=== PATIENT | female | born 1975 | race Caucasian/White ===

== ENCOUNTER 2024-03-01 22:52 | Emergency (ER) | payer BC ==
[2024-03-01 23:00] VITALS: RESP 20; TEMP 97.3
--- NOTE | 2024-03-01 23:22 | ERPHSYRPT ---
- History of Present Illness Source: patient Exam Limitations: no limitations Patient Subjective Stated Complaint: I woke up about 1.5-2 weeks ago with pain and it's just getting worse by the day. I went to [facility] today and she gave me a shot (steroid) and the flexeril, but it hasn't helped at all. Triage Nursing Assessment: Pt brought back to ER room 9 in wheelchair by her mother. Pt c/o back pain and left leg pain. Pt states, "I woke up about a week and a half ago with this pain and it has gotten increasingly worse every single day". Pt has the pain from her low back all the way down her left leg. Pt is moaning, grasping site and has facial grimmacing from the pain. Pt denies any numbness or tingling. Pt was seen in [facility] today and dx with sciatica and given flexeril po and a steroid shot which pt states, "has not helped at all". Pt rates pain a 10. Physician History: Patient has low back pain which radiates down her left leg. She says it feels like stinging. It hurts to stand on it or putting weight on it. She has radicular symptoms that radiate down the back of the leg and into the dorsum of the left foot. The right leg is not involved. She does not have a bowel or bladder dysfunction and no saddle paresthesias. She does not have any weakness. She saw her primary care doctor and was diagnosed with sciatica. I think that this is an accurate diagnosis. She was given Flexeril and a steroid shot and is requesting something for pain. She says that those are not helping. The symptoms been going on for about a week and a half. Allergies/Adverse Reactions: methylprednisolone Adverse Reaction (Mild, Verified 03/01/24 23:14) Hives Home Medications: Cyclobenzaprine HCl 5 mg PO TID PRN 03/01/24 [History] Hx Tetanus, Diphtheria Vaccination/Date Given: Yes Hx Influenza Vaccination/Date Given: No Hx Pneumococcal Vaccination/Date Given: No Travel Risk - International Travel Have you traveled outside of the country in past 3 weeks: No - Emerging Infectious Disease Are you exhibiting symptoms associated with any current EIDs: No - Review of Systems Ears, Nose, & Throat: No Symptoms Respiratory: No Symptoms Cardiac: No Symptoms Abdominal/Gastrointestinal: No Symptoms Genitourinary Symptoms: No Symptoms All Other Systems: Reviewed and Negative - Past Medical History Pertinent Past Medical History: No Other Medical History: bicornel septate uterus, 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 - Past Surgical History Past Surgical History: Yes Gastrointestinal: Appendectomy Female Surgical History: Dilation & Curettage, Section, Tubal Ligation - Female History Hx Last Menstrual Period: 02/23/24 Hx Now: No - Social History Smoking Status: Never smoker Exposure to second hand smoke: Yes Drug Use: none Patient Lives Alone: No - Social Determinants of Health Will the patient participate in the screening: Yes Do you worry about a steady place to live?: No Do you have any problems with any of the following?: No known problems In the past 12 months,have you had to go without utilities?: No Transportation Issues: No Has anyone in your support network made you feel unsafe?: No Have you or anyone in your house had to go without enough: No - Nursing Vital Signs Nursing Vital Signs: Initial Vital Signs Temperature 97.3 F 03/01/24 22:57 Pulse Rate 71 03/01/24 22:57 Respiratory Rate 20 03/01/24 22:57 Blood Pressure 129/82 03/01/24 22:57 O2 Sat by Pulse Oximetry 100 03/01/24 22:57 Pain Scale Pain Intensity [Left Thigh] 10 Pain Intensity 10 - Physical Exam General Appearance: no apparent distress Respiratory Exam: normal breath sounds Cardiovascular Exam: regular rate/rhythm Back Exam: other (Back exam was limited due to pain.) Extremity Exam: normal inspection, normal range of motion, pelvis stable Neurologic Exam: alert, oriented x 3, cooperative, wicker worker II-XII nml as tested, normal mood/affect, nml cerebellar function Skin Exam: normal color, warm, dry SpO2: 100 - Course Nursing assessment & vital signs reviewed: Yes - Progress Progress: unchanged Progress Note: Patient was stable throughout stay. I gave her some Nubain here IM. I would to send her home with [place]. She already has Flexeril. I would add a short course of prednisone as well. On the differential was sciatica, herniated lumbar disc, lumbar muscle strain I think it sciatica. She has been diagnosed with that earlier and is being treated currently. I told her to get a follow-up with her primary care doctor as she may need physical therapy or referral 03/01/24 23:21 Medical Desision Making - Independent Historian Additional History obtained from: Mother - Risk of complications Minimal Risk: Minimal risk of morbidity - Departure Departure Disposition: Home Clinical Impression: Sciatica Condition: Stable Critical Care Time: No Referrals: GWENDOLYN DOHERTY MD [Primary Care Provider] - Follow up/PCP as directed Instructions: Sciatica (DC)
[2024-03-01] MEDS ORDERED: Nubain 10 MG/ML ONE (23:26)
[2024-03-01] MEDS: Nubain 10 MG/ML IM ONE (23:30)
[2024-03-02] MEDS ORDERED: Hydromorphone 1 mg/ml Injection ONE (00:06)
[2024-03-02 00:08] VITALS: PULSE 58
[2024-03-02] MEDS: Hydromorphone 1 mg/ml Injection IM ONE (00:15)
[2024-03-02 00:20] VITALS: O2SAT 93
[2024-03-02 00:51] VITALS: BP 105/65
== END 2024-03-02 00:50 | disposition home or self-care (01) ==
LOC: ED 22:52
DX: M54.42 Lumbago with sciatica, left side (principal); M79.605 Pain in left leg
CPT/HCPCS: 96372; 99283; J1171; J2300

== ENCOUNTER 2024-03-04 10:39 | Emergency (ER) | payer BC ==
[2024-03-04 11:55] VITALS: TEMP 97
[2024-03-04 12:21] LABS: Appearance Cloudy (Clear); Bacteria Few /HPF (None Seen); Bilirubin Negative (Negative); Blood Negative (Negative); Epithelial Cells Few /HPF (None Seen); Glucose, Urine Negative (Negative); Hyaline Casts NONE SEEN /LPF (0-2); Ketones Trace (Negative); Leukocyte Esterase Negative (Negative); Nitrite Negative (Negative); Ph 5.5 (4.6-8.0); Protein,Urine Dip Trace (Negative); RBC 0-2 /HPF (0-5); Specific Gravity >=1.030 (1.005-1.030); WBC 0-2 /HPF (0-5)
[2024-03-04] MEDS ORDERED: MORPHINE SULFATE 4 MG INJ ONE (12:39)
--- NOTE | 2024-03-04 12:39 | ERPHSYRPT ---
- History of Present Illness Time Seen by Provider: 03/04/24 10:45 Source: patient Exam Limitations: no limitations Patient Subjective Stated Complaint: "I was here a couple days ago and I can't stand this pain. I can't even walk now and I have small children at home to care for. The pain is in my left hip and goes down my leg and it hurts to pee. I think I'm dehydrated too." Triage Nursing Assessment: Pt presents to ER in wheelchair complaining of lower back pain x 2 weeks that has progressively worsened. Pain is primarily located in the left groin today and radiates down left leg. Pt denies injury. has had difficulty urinating and blood in her urine. Pt is alert and oriented x 3. Skin pink, warm, and dry. Appears anxious and in pain. has had some nausea as well. Pt was seen in ER a couple days ago and sent home w/ Rx [place], Prednisone, and Cyclobenzaprine. meds are helping minimally. Also has been taking tylenol and motrin at home. Last dose approx 2 hours [employer]. is unable to ambulate without walker due to the pain. Physician History: 48-year-old female presented in the ER with 2 days history of left lower back pain with radiation to the left lower extremity moderate to severe sharp shooting with some numbness left anterior lateral thigh area. Pain is aggravated with minimal movements and is unable to have weightbearing. Patient was seen at [facility] and later this ER, got symptomatic treatment with no significant relief. Denies any loss of bowel or bladder control or saddle anesthesia. Denies any fall or trauma. No previous history of back pain. Patient does report it hurts to urinate but no incontinence/retention. Allergies/Adverse Reactions: azithromycin [From Zithromax Z-John] Adverse Reaction (Mild, Verified 03/04/24 11:55) Hives methylprednisolone Adverse Reaction (Mild, Verified 03/04/24 11:55) Hives Home Medications: Cyclobenzaprine HCl 5 mg PO TID PRN 03/01/24 [History] Hx Tetanus, Diphtheria Vaccination/Date Given: Yes Hx Influenza Vaccination/Date Given: No Hx Pneumococcal Vaccination/Date Given: No Immunizations Up to Date: No Travel Risk - International Travel Have you traveled outside of the country in past 3 weeks: No - Emerging Infectious Disease Are you exhibiting symptoms associated with any current EIDs: No - Review of Systems Constitutional: No Symptoms Eyes: No Symptoms Ears, Nose, & Throat: No Symptoms Respiratory: No Symptoms Cardiac: No Symptoms Abdominal/Gastrointestinal: No Symptoms Genitourinary Symptoms: Dysuria Musculoskeletal: Back Pain Skin: No Symptoms Neurological: No Symptoms Hematologic/Lymphatic: No Symptoms - Past Medical History Pertinent Past Medical History: No Other Medical History: bicornel septate uterus, 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 - Past Surgical History Past Surgical History: Yes Gastrointestinal: Appendectomy Female Surgical History: Dilation & Curettage, Section, Tubal Ligation - Female History Hx Last Menstrual Period: 02/14/24 Hx Now: No - Social History Smoking Status: Never smoker Exposure to second hand smoke: No Drug Use: none Patient Lives Alone: No - Social Determinants of Health Will the patient participate in the screening: Yes Do you worry about a steady place to live?: No Do you have any problems with any of the following?: No known problems In the past 12 months,have you had to go without utilities?: No Transportation Issues: No Has anyone in your support network made you feel unsafe?: No Have you or anyone in your house had to go without enough: No - Nursing Vital Signs Nursing Vital Signs: Initial Vital Signs Temperature 97 F 03/04/24 11:48 Pulse Rate 124 H 03/04/24 11:48 Respiratory Rate 22 03/04/24 11:48 Blood Pressure 120/81 03/04/24 11:48 O2 Sat by Pulse Oximetry 100 03/04/24 11:48 Pain Scale Pain Intensity 5 - Physical Exam General Appearance: no apparent distress Eye Exam: PERRL/EOMI Ears, Nose, Throat Exam: normal ENT inspection Neck Exam: normal inspection, full range of motion Respiratory Exam: normal breath sounds, lungs clear Cardiovascular Exam: normal heart sounds, tachycardia Gastrointestinal Exam: soft, normal bowel sounds, No tenderness Back Exam: normal inspection, vertebral tenderness (Lower lumbar sacroiliac area the left), decreased range of motion, muscle spasm, point tenderness Extremity Exam: normal inspection, normal range of motion, pelvis stable Neurologic Exam: alert, oriented x 3, cooperative Skin Exam: normal color SpO2 Interpretation: normal SpO2: 100 O2 Delivery: Room Air Ordered Tests: Active Orders 24 hr Category Date Time Status LUMBAR SPINE W/O [CT] Stat Exams 03/04/24 12:33 Completed UA W/RFX UR CULTURE Stat Lab 03/04/24 12:15 Completed Medication Summary Discontinued Medications Generic Name Dose Route Start Last Admin Trade Name Feroz PRN Reason Stop Dose Admin Ketorolac Tromethamine 30 mg 03/04/24 14:42 03/04/24 14:53 Ketorolac Tromethamine 30 Mg/Ml Inj IM 03/04/24 14:43 30 mg STAT ONE Administration Ketorolac Tromethamine Confirm 03/04/24 14:48 Ketorolac Tromethamine 30 Mg/Ml Inj Administered 03/04/24 14:49 Dose 30 mg .ROUTE .STK-MED ONE Morphine Sulfate 4 mg 03/04/24 12:34 03/04/24 12:41 Morphine Sulfate 4 Mg/Ml Injection IM 03/04/24 12:35 4 mg STAT ONE Administration Morphine Sulfate Confirm 03/04/24 12:39 Morphine Sulfate 4 Mg/Ml Injection Administered 03/04/24 12:40 Dose 4 mg .ROUTE .STK-MED ONE Orphenadrine Citrate 60 mg 03/04/24 14:42 03/04/24 14:52 Orphenadrine Citrate 60 Mg/2 Ml Vial IM 03/04/24 14:43 60 mg STAT ONE Administration Orphenadrine Citrate Confirm 03/04/24 14:48 Orphenadrine Citrate 60 Mg/2 Ml Vial Administered 03/04/24 14:49 Dose 60 mg .ROUTE .STK-MED ONE Lab/Rad Data: Laboratory Results 03/04/24 Range/Units 12:15 Urine Color Yellow (Yellow) Urine Appearance Cloudy A (Clear) Urine pH 5.5 (4.6-8.0) Ur Specific [place] >=1.030 A (1.005-1.030) Urine Protein Trace A (Negative) Urine Glucose (UA) Negative (Negative) mg/dL Urine Ketones Trace A (Negative) Urine Blood Negative (Negative) Urine Nitrite Negative (Negative) Urine Bilirubin Negative (Negative) Urine Urobilinogen 1.0 A (0.2) mg/dL Ur Leukocyte Esterase Negative (Negative) U Hyaline Cast (Auto) NONE SEEN (0-2) /LPF Urine Microscopic RBC 0-2 (0-5) /HPF Urine Microscopic WBC 0-2 (0-5) /HPF Ur Epithelial Cells Few (None Seen) /HPF Urine Bacteria Few A (None Seen) /HPF Urine Culture Reflexed NO (NO) - Progress Progress: improved, re-examined Progress Note: 03/04/24 15:06 48-year-old is evaluated in the ER for left lower back pain with some radiation to the left lower extremity with no cauda equina symptoms. Patient does not have UTI. She is given symptomatic treatment with morphine, Toradol and Norflex, reevaluation she is remarkably improved. I have obtained CT lumbar spine as patient has some tenderness in the low back and this is her second visit which showed some degenerative changes but no herniated disc, fracture or subluxation. She is able to ambulate better on reevaluation. I would continue with pain medications which she has at home and recommended taking NSAIDs and muscle relaxant, outpatient follow-up. Discussed signs symptoms of worsening needing return to ER which she seems understanding. Stable for discharge. 03/04/24 15:07 Counseled pt/family regarding: diagnosis, need for follow-up, rad results Medical Desision Making - Independent Historian Additional History obtained from: Relative/friend - Diagnostic Testing Diagnostic test were ordered, analyzed, and reviewed by me: Yes Radiological Interpretation: Reviewed by me - Risk of complications The pt has a mod risk of morbidity or mortality based on: Need for prescription drug management - Departure Departure Disposition: Home Clinical Impression: Back pain with sciatica Condition: Stable Critical Care Time: No Referrals: GWENDOLYN DOHERTY MD [Primary Care Provider] - Follow up with PCP 1 day Instructions: Sciatica ED Additional Instructions: Take Tylenol/ibuprofen as needed for pain. Follow-up with primary care for reevaluation. Continue with muscle relaxants. Return to ER for intractable pain, numbness weakness of lower extremity, loss of bowel or bladder control or saddle anesthesia etc. Prescriptions: Ibuprofen 600 mg PO Q6HPRN PRN 10 Days #20 tablet PRN Reason: Pain
[2024-03-04] MEDS: MORPHINE SULFATE 4 MG INJ IM ONE (12:41)
[2024-03-04 14:12] VITALS: PULSE 56; RESP 16
--- NOTE | 2024-03-04 14:28 | XRAY ---
Indication: Back pain. Left sciatica. Multiple contiguous axial images obtained through the lumbar spine. Sagittal and coronal reformatted images obtained. Comparison: None Minimal L2-L3 endplate spurring, mild levoscoliosis centered at L3, and mild degenerative changes both SI joints. No other bony, articular, or soft tissue abnormalities. Impression: Chronic findings including L2-L3 degenerative endplate spurring, levoscoliosis, and bilateral SI joint degenerative changes. Remaining CT lumbar spine is normal.
[2024-03-04] MEDS ORDERED: Norflex 60 MG/2 ML ONE (14:48)
[2024-03-04] MEDS ORDERED: TORAdol 30 mg Injection ONE (14:48)
[2024-03-04] MEDS: Norflex 60 MG/2 ML IM ONE (14:52)
[2024-03-04] MEDS: TORAdol 30 mg Injection IM ONE (14:53)
[2024-03-04 15:10] VITALS: O2SAT 100
[2024-03-04] MEDS ORDERED: NORCO 5/325 MG ONE (15:21)
[2024-03-04] MEDS: NORCO 5/325 MG PO ONE (15:22)
[2024-03-04 15:29] VITALS: BP 121/67
== END 2024-03-04 15:30 | disposition home or self-care (01) ==
LOC: ED 10:39
DX: M54.42 Lumbago with sciatica, left side (principal); Z79.899 Other long term (current) drug therapy
CPT/HCPCS: 72131; 81001; 96372; 99284; J1885; J2270; J2360; A9270-GY